=== PATIENT | female | born 1995 | race Caucasian/White ===

== ENCOUNTER 2016-06-19 03:16 | Emergency (ER) | payer MEDICAID ==
[2016-06-19] MEDS ORDERED: PREDNISONE 20 MG TABLET PO ONE (04:07)
[2016-06-19] MEDS ORDERED: IPRATROPIUM/ALBUTEROL 0.5-2.5 MG/3 ML AMPUL NEB ONE (04:07)
--- NOTE | 2016-06-19 04:24 | ER Document Report ---
HPI - HPI Patient complains to provider of: cough Pain Level: 4 Context: Patient is a 20-year-old female that comes emergency department for chief complaint of cough for 3 days, she states today she felt like she could not stop coughing while at work. She also reports pressure over her sinuses but denies nasal drainage, denies sore throat, she is coughing. Patient smokes daily, patient denies history of asthma or any other medical history. LMP last week. - DERM Skin Color: Normal, [place] Past Medical History - General Information source: Patient - Social History Smoking Status: Current Every Day Smoker Chew tobacco use (# tins/day): No Smoking Education Provided: Yes - <3 min Frequency of alcohol use: None Drug Abuse: None Lives with: Family Family History: Reviewed & Not Pertinent - Medical History Medical History: Negative Renal/ Medical History: Denies: Hx Peritoneal Dialysis Surgical Hx: Negative - Immunizations Immunizations up to date: Yes Hx Diphtheria, Pertussis, Tetanus Vaccination: Yes Vertical Provider Document - CONSTITUTIONAL General Appearance: WD/WN, No Apparent Distress - INFECTION CONTROL TRAVEL OUTSIDE OF THE [place] IN LAST 30 DAYS: No - HEENT HEENT: Atraumatic, Normal ENT Exam, Normocephalic - RESPIRATORY Respiratory: Wheezing - Very slight end expiratory wheezes, clear lung sounds otherwise. negative: Breath Sounds Normal O2 Sat by Pulse Oximetry: 94 - CARDIOVASCULAR Cardiovascular: Regular Rate, Regular Rhythm - GI/ABDOMEN Gastrointestinal: Abdomen Soft, Abdomen Non-Tender - BACK Back: Normal Inspection - MUSCULOSKELETAL/EXTREMETIES Musculoskeletal/Extremeties: MAEW, FROM, Non-Tender - NEURO Level of Consciousness: Awake, Alert, Appropriate Motor/Sensory: No Motor Deficit, No Sensory Deficit - DERM Integumentary: Warm, Dry, No Rash Course - Re-evaluation Re-evalutation: Patient with initial oxygen saturation of 94%, very slight wheezing but otherwise clear lung sounds, no labored breathing or respiratory distress. Patient does have cough with some productive sputum. On reevaluation wheezing resolved, mild tachycardia after DuoNeb, otherwise unremarkable exam. Discussed smoking cessation, placing on prednisone, covering with azithromycin because of productive cough, advised follow-up with primary care and return if she worsens in any way. Patient states understanding and agreement. - Vital Signs Vital signs: Temp Pulse Resp BP Pulse Ox 98.7 F 96 16 151/88 H 94 06/19/16 03:31 06/19/16 03:31 06/19/16 03:31 06/19/16 03:31 06/19/16 03:31 Discharge - Discharge Clinical Impression: Cough, Bronchitis Condition: Stable Disposition: HOME, SELF-CARE Additional Instructions: Your examination is consistent with bronchitis, an upper respiratory infection. Take the prednisone as directed, take azithromycin antibiotic as directed. Rest and hydrate. Stop smoking. Follow-up with primary care referral. Return to the emergency department for any concerning or worsening symptoms. Prescriptions: Azithromycin [Zithromax 250 mg Tablet] 250 mg PO ASDIR PRN #6 tablet PRN Reason: Prednisone [Deltasone 10 mg Tablet] 10 mg PO ASDIR PRN #21 tablet PRN Reason: Forms: Smoking Cessation Education, Return to Work, Elevated Blood Pressure Referrals: [facility] [Provider Group] - Follow up as needed
[2016-06-19] MEDS ORDERED: ACETAMINOPHEN 325 MG TABLET PO ONE (04:40)
[2016-06-19 05:12] VITALS: BP 150/85
== END 2016-06-19 04:42 | disposition home or self-care (01) ==
LOC: ER 03:16
DX: J40 Bronchitis, not specified as acute or chronic (principal); R05 Cough; R51 Headache; F17.210 Nicotine dependence, cigarettes, uncomplicated
CPT/HCPCS: 94640; 99283; J7512; J7620